=== PATIENT | male | born 1965 | race African-American/Black ===

== ENCOUNTER 2019-05-15 08:34 | Inpatient (IN) | payer OTHER ==
[2019-05-15] MEDS ORDERED: THIAMINE 100 MG/ML 2 ML VIAL IM STA (08:46)
[2019-05-15] MEDS ORDERED: LORazepam 2 MG/ML INJ IV PRN ×2 (08:46)
[2019-05-15] MEDS ORDERED: SODIUM CHLORIDE 0.9% 1,000 ML IV ONE (08:47)
[2019-05-15] MEDS ORDERED: ONDANSETRON 4 MG/2 ML VIAL IVP STA (09:12)
--- NOTE | 2019-05-15 09:23 | XR ---
EXAMINATION TYPE: XR KUB DATE OF EXAM: 05/15/2019 COMPARISON: 12/14/2009 HISTORY: Vomiting TECHNIQUE: One view abdominal series FINDINGS: The osseous structures are intact. The bowel gas pattern is nonspecific. Lung bases are clear. IMPRESSION: 1. Nonspecific abdomen.
--- NOTE | 2019-05-15 09:41 | ED ---
Nausea/Vomiting/Diarrhea HPI <Javier Mitchell - Last Filed: 05/15/19 14:32> - General Source: patient Mode of arrival: wheelchair Limitations: no limitations <Zulma Bermudez - Last Filed: 05/15/19 15:18> - General Chief complaint: Nausea/Vomiting/Diarrhea Stated complaint: Not eating, vomiting Time Seen by Provider: 05/15/19 08:45 - History of Present Illness Initial comments: 53-year-old male with history of diabetes presenting today for chief complaint of vomiting loss of appetite, chills. Patient states he is a HAS been trying to decrease his oral intake and attempt to be sober. Patient states that the past week he has had vomiting he states he had some mild shakes. Patient denies any hallucinations. Patient denies diarrhea or fevers. Patient denies that Mrs. melena hematochezia. Patient denies any abdominal pain chest pain or shortness of breath. Remaining review of system negative. Upon arrival patient appears in no distress blood pressure elevated patient did not take home blood pressure medications prior to arrival (Zulma Bermudez) - Related Data Home Medications Medication Instructions Recorded Confirmed Insulin Aspart [Novolog] See Protocol SQ TID PRN 05/15/19 05/15/19 Insulin Glargine,Hum.rec.anlog 30 unit SQ HS 05/15/19 05/15/19 [Basaglar Kwikpen U-100] Lisinopril [Prinivil] 10 mg PO DAILY 05/15/19 05/15/19 metFORMIN HCL [metFORMIN HCL ER] 750 mg PO BID 05/15/19 05/15/19 Allergies Allergy/AdvReac Type Severity Reaction Status Date / Time No Known Allergies Allergy Verified 05/15/19 09:25 Review of Systems ROS Other: All systems not noted in ROS Statement are negative. <Javier Mitchell - Last Filed: 05/15/19 14:32> ROS Other: All systems not noted in ROS Statement are negative. <Zulma Bermudez - Last Filed: 05/15/19 15:18> ROS Statement: Those systems with pertinent positive or pertinent negative responses have been documented in the HPI. Past Medical History Past Medical History: Diabetes Mellitus, Hypertension History of Any Multi-Drug Resistant Organisms: None Reported Past Surgical History: No Surgical Hx Reported Smoking Status: Light tobacco smoker Past Alcohol Use History: Abuse, Daily, Heavy Past Drug Use History: None Reported <Zulma Bermudez - Last Filed: 05/15/19 15:18> General Exam Limitations: no limitations <SaybruceZulma Zhao - Last Filed: 05/15/19 15:18> - General Exam Comments Initial Comments: General: The patient is awake and alert, in no distress Eye: +3 mm pupils are equal, round and reactive to light, extra-ocular movements are intact. No nystagmus. There is normal conjunctiva bilaterally. No signs of icterus. Ears, nose, mouth and throat: There are moist mucous membranes and no oral lesions. Neck: The neck is supple, there is no tenderness or JVD. Cardiovascular: There is a regular rate and rhythm. No murmur, rub or gallop is appreciated. Respiratory: Lungs are clear to auscultation, respirations are non-labored, breath sounds are equal. No wheezes, stridor, rales, or rhonchi. Gastrointestinal: Soft, non-distended, non-tender abdomen without masses or organomegaly noted. There is no rebound or guarding present. Musculoskeletal: Normal ROM, no tenderness. Strength 5/5. Sensation intact. Pulses equal bilaterally 2+. Neurological: A&O x 3. CN II-XII intact grossly, There are no obvious motor or sensory deficits. Coordination appears grossly intact. Speech is normal. Skin: Skin is warm and dry and no rashes or lesions are noted. Psychiatric: Cooperative (Zulma Bermudez) Course Vital Signs 05/15/19 05/15/19 08:38 13:42 Temperature 97.8 F Pulse Rate 106 H Respiratory 19 18 Rate Blood Pressure 150/104 174/99 O2 Sat by Pulse 98 Oximetry Medical Decision Making - Lab Data Result diagrams: 05/15/19 09:45 05/15/19 13:15 <Javier Mitchell - Last Filed: 05/15/19 14:32> - Lab Data Result diagrams: 05/15/19 09:45 05/15/19 13:15 <Zulma Bermudez - Last Filed: 05/15/19 15:18> - Medical Decision Making Case was discussed with practitioner Zohra. Patient does have an anion gap and ketosis of urine. Patient still has anion gap however somewhat improved after some fluids. Case was discussed with Dr. moreno, who will admit covering for hospital call for continued IV fluids. (Javier Mitchell) 53-year-old male presenting to ER today for chief complaint of vomiting, possible ETOH withdrawal. Patient appears to have mild withdrawal symptoms and has been given ativan in the ER. Patient states he hasnt had food in a week. Initial CMP revealed elevated anion gap, with glucose under 200mg, ketones in urine, postitive blood alcohol and acetone. ABG WNL. Patient had repeat CMP revealed continued elevation of the anion gap. Patient also has persistent hypokalemia (mild). Patient will be admitted for further evaluation and treatment. Patient agreeable. Vomiting controlled in the ER. (Zulma Bermudez) - Lab Data Lab Results 05/15/19 05/15/19 05/15/19 Range/Units 09:45 09:45 11:35 WBC 5.5 (3.8-10.6) k/uL RBC 4.72 (4.30-5.90) m/uL Hgb 14.1 (13.0-17.5) gm/dL Hct 39.8 (39.0-53.0) % MCV 84.2 (80.0-100.0) fL MCH 29.9 (25.0-35.0) pg MCHC 35.5 (31.0-37.0) g/dL RDW 12.0 (11.5-15.5) % Plt Count 352 (150-450) k/uL Neutrophils % 63 % Lymphocytes % 24 % Monocytes % 7 % Eosinophils % 1 % Basophils % 1 % Neutrophils # 3.5 (1.3-7.7) k/uL Lymphocytes # 1.3 (1.0-4.8) k/uL Monocytes # 0.4 (0-1.0) k/uL Eosinophils # 0.0 (0-0.7) k/uL Basophils # 0.1 (0-0.2) k/uL Sample Site rrad ABG pH 7.46 H (7.35-7.45) ABG pCO2 33 L (35-45) mmHg ABG pO2 91 (83-108) mmHg ABG HCO3 24 (21-25) mmol/L ABG Total CO2 25 H (19-24) mmol/L ABG O2 Saturation 97.0 (94-97) % ABG Base Excess -0.2 mmol/L Antonio Test Yes FiO2 21 % Sodium 135 L (137-145) mmol/L Potassium 3.3 L (3.5-5.1) mmol/L Chloride 85 L (98-107) mmol/L Carbon Dioxide 21 L (22-30) mmol/L Anion Gap 29 mmol/L BUN 15 (9-20) mg/dL Creatinine 0.78 (0.66-1.25) mg/dL Est GFR (CKD-EPI)AfAm >90 (>60 ml/min/1.73 sqM) Est GFR (CKD-EPI)NonAf >90 (>60 ml/min/1.73 sqM) Glucose 125 H (74-99) mg/dL Calcium 9.4 (8.4-10.2) mg/dL Magnesium 1.5 L (1.6-2.3) mg/dL Total Bilirubin 0.9 (0.2-1.3) mg/dL AST 69 H (17-59) U/L ALT 31 (4-49) U/L Alkaline Phosphatase 79 (38-126) U/L Total Protein 8.2 (6.3-8.2) g/dL Albumin 4.9 (3.5-5.0) g/dL Urine Color Urine Appearance (Clear) Urine pH (5.0-8.0) Ur Specific [place] (1.001-1.035) Urine Protein (Negative) Urine Glucose (UA) (Negative) Urine Ketones (Negative) Urine Blood (Negative) Urine Nitrite (Negative) Urine Bilirubin (Negative) Urine Urobilinogen (<2.0) mg/dL Ur Leukocyte Esterase (Negative) Urine RBC (0-5) /hpf Urine WBC (0-5) /hpf Ur Squamous Epith Cells (0-4) /hpf Hyaline Casts (0-2) /lpf Urine Mucus (None) /hpf Serum Alcohol 81 mg/dL Acetone, Qual Positive (Negative) 05/15/19 05/15/19 Range/Units 12:53 13:15 WBC (3.8-10.6) k/uL RBC (4.30-5.90) m/uL Hgb (13.0-17.5) gm/dL Hct (39.0-53.0) % MCV (80.0-100.0) fL MCH (25.0-35.0) pg MCHC (31.0-37.0) g/dL RDW (11.5-15.5) % Plt Count (150-450) k/uL Neutrophils % % Lymphocytes % % Monocytes % % Eosinophils % % Basophils % % Neutrophils # (1.3-7.7) k/uL Lymphocytes # (1.0-4.8) k/uL Monocytes # (0-1.0) k/uL Eosinophils # (0-0.7) k/uL Basophils # (0-0.2) k/uL Sample Site ABG pH (7.35-7.45) ABG pCO2 (35-45) mmHg ABG pO2 (83-108) mmHg ABG HCO3 (21-25) mmol/L ABG Total CO2 (19-24) mmol/L ABG O2 Saturation (94-97) % ABG Base Excess mmol/L Antonio Test FiO2 % Sodium 134 L (137-145) mmol/L Potassium 3.4 L (3.5-5.1) mmol/L Chloride 88 L (98-107) mmol/L Carbon Dioxide 22 (22-30) mmol/L Anion Gap 24 mmol/L BUN 14 (9-20) mg/dL Creatinine 0.75 (0.66-1.25) mg/dL Est GFR (CKD-EPI)AfAm >90 (>60 ml/min/1.73 sqM) Est GFR (CKD-EPI)NonAf >90 (>60 ml/min/1.73 sqM) Glucose 104 H (74-99) mg/dL Calcium 8.9 (8.4-10.2) mg/dL Magnesium (1.6-2.3) mg/dL Total Bilirubin 0.8 (0.2-1.3) mg/dL AST 60 H (17-59) U/L ALT 29 (4-49) U/L Alkaline Phosphatase 73 (38-126) U/L Total Protein 7.4 (6.3-8.2) g/dL Albumin 4.6 (3.5-5.0) g/dL Urine Color Yellow Urine Appearance Clear (Clear) Urine pH 5.5 (5.0-8.0) Ur Specific [place] 1.023 (1.001-1.035) Urine Protein 2+ H (Negative) Urine Glucose (UA) Negative (Negative) Urine Ketones 4+ H (Negative) Urine Blood Trace H (Negative) Urine Nitrite Negative (Negative) Urine Bilirubin Negative (Negative) Urine Urobilinogen <2.0 (<2.0) mg/dL Ur Leukocyte Esterase Negative (Negative) Urine RBC 1 (0-5) /hpf Urine WBC 1 (0-5) /hpf Ur Squamous Epith Cells <1 (0-4) /hpf Hyaline Casts 1 (0-2) /lpf Urine Mucus Rare H (None) /hpf Serum Alcohol mg/dL Acetone, Qual (Negative) - EKG Data EKG Comments: Ventricular rate 92 bpm, OR interval 138 ms, to administration 94 ms QT/QTC 438/541 ms. This is normal sinus elevation or depression noted. There is noted T-wave inversions QT is prolonged otherwise no acute findings (Zulma Bermudez) Disposition <Javier Mitchell - Last Filed: 05/15/19 14:32> Is patient prescribed a controlled substance at d/c from ED?: No Time of Disposition: 14:51 Decision to Admit Reason: Admit from EC Decision Date: 05/15/19 Decision Time: 14:51 <Zulma Bermudez - Last Filed: 05/15/19 15:18> Clinical Impression: Vomiting, High anion gap metabolic acidosis, Hypokalemia, QT prolongation Disposition: ADMITTED IP TO THIS [facility] Condition: Stable Referrals: None,Stated [Primary Care Provider] - 1-2 days
[2019-05-15 10:32] LABS: Basophils # (A) 0.1 k/uL (0-0.2); Basophils % (A) 1 %; Eosinophils % (A) 1 %; HCT 39.8 % (39.0-53.0); HGB 14.1 gm/dL (13.0-17.5); Lymphocytes # (A) 1.3 k/uL (1.0-4.8); Lymphocytes % (A) 24 %; MCH 29.9 pg (25.0-35.0); MCHC 35.5 g/dL (31.0-37.0); MCV 84.2 fL (80.0-100.0); Mean Platelet Volume 7.1; Monocytes # (A) 0.4 k/uL (0-1.0); Monocytes % (A) 7 %; Neutrophils # (A) 3.5 k/uL (1.3-7.7); Neutrophils % (A) 63 %; Platelet Count 352 k/uL (150-450); RBC 4.72 m/uL (4.30-5.90); WBC 5.5 k/uL (3.8-10.6)
[2019-05-15 10:38] LABS: ALT 31 U/L (4-49); AST 69 U/L (17-59); African American GFR (CKD) >90 (>60 ml/min/1.73 sqM); Albumin 4.9 g/dL (3.5-5.0); Alkaline Phosphatase 79 U/L (38-126); Anion Gap 29 mmol/L; Blood Urea Nitrogen 15 mg/dL (9-20); Calcium 9.4 mg/dL (8.4-10.2); Carbon Dioxide 21 mmol/L (22-30); Chloride 85 mmol/L (98-107); Glucose 125 mg/dL (74-99); Magnesium 1.5 mg/dL (1.6-2.3); Non-African American GFR(CKD) >90 (>60 ml/min/1.73 sqM); Potassium 3.3 mmol/L (3.5-5.1); Sodium 135 mmol/L (137-145); Total Bilirubin 0.9 mg/dL (0.2-1.3); Total Protein 8.2 g/dL (6.3-8.2)
[2019-05-15 10:49] LABS: Alcohol 81 mg/dL
[2019-05-15] MEDS ORDERED: MAGNESIUM OXIDE 400 MG TAB PO STA (10:54)
[2019-05-15] MEDS ORDERED: INSULIN REGULAR BOLUS (FROM DRIP BAG) IV ONE ×2 (10:55→17:22)
[2019-05-15] MEDS ORDERED: POTASSIUM CHLORIDE ER 20 MEQ TAB.ER PO STA (10:56)
[2019-05-15] MEDS ORDERED: SODIUM CHLORIDE 0.9% 1,000 ML IV SCH ×2 (11:00→17:30)
[2019-05-15] MEDS ORDERED: INSULIN REGULAR 100 UNIT in SODIUM CHLORIDE 0.9% 100 ML IV SCH ×2 (11:30→17:30)
[2019-05-15 11:49] LABS: ABG Base Excess -0.2 mmol/L; ABG HCO3 24 mmol/L (21-25); ABG PCO2 33 mmHg (35-45); ABG PH 7.46 (7.35-7.45); ABG PO2 91 mmHg (83-108); ABG TCO2 25 mmol/L (19-24); Allen Test Performed? Yes
[2019-05-15] MEDS ORDERED: D5-0.45% NACL WITH KCL 20MEQ/L 1,000 ML IV SCH (12:00)
[2019-05-15] MEDS: POTASSIUM CHLORIDE 10 MEQ in WATER FOR INJECTION 1 100ML.BAG IVPB SCH ×2 (12:43→13:56)
[2019-05-15 13:29] LABS: Appearance,Urine Clear (Clear); Bilirubin,Urine Negative (Negative); Blood,Urine Trace (Negative); Color,Urine Yellow; Glucose,Urine (UA) Negative (Negative); Hyaline Casts,Urine 1 /lpf (0-2); Ketones,Urine 4+ (Negative); Leukocyte Esterase,Urine Negative (Negative); Mucus,Urine Rare /hpf; Nitrite,Urine Negative (Negative); PH, Urine 5.5 (5.0-8.0); Protein,Urine 2+ (Negative); RBC,Urine 1 /hpf (0-5); Specific Gravity,Urine 1.023 (1.001-1.035); Squamous Epithelial Cell,Urine <1 /hpf (0-4); Urobilinogen,Urine <2.0 mg/dL (<2.0); WBC,Urine 1 /hpf (0-5)
[2019-05-15 13:35] LABS: ALT 29 U/L (4-49); AST 60 U/L (17-59); African American GFR (CKD) >90 (>60 ml/min/1.73 sqM); Albumin 4.6 g/dL (3.5-5.0); Alkaline Phosphatase 73 U/L (38-126); Anion Gap 24 mmol/L; Blood Urea Nitrogen 14 mg/dL (9-20); Calcium 8.9 mg/dL (8.4-10.2); Carbon Dioxide 22 mmol/L (22-30); Chloride 88 mmol/L (98-107); Glucose 104 mg/dL (74-99); Non-African American GFR(CKD) >90 (>60 ml/min/1.73 sqM); Potassium 3.4 mmol/L (3.5-5.1); Sodium 134 mmol/L (137-145); Total Bilirubin 0.8 mg/dL (0.2-1.3); Total Protein 7.4 g/dL (6.3-8.2)
[2019-05-15] MEDS: LORazepam 2 MG/ML INJ IV PRN ×3 (13:55→20:12)
[2019-05-15] MEDS ORDERED: LISINOPRIL 10 MG TAB PO STA (14:31)
[2019-05-15] MEDS ORDERED: NALOXONE 0.4 MG/ML 1 ML VIAL IV PRN (14:49)
[2019-05-15] MEDS: SODIUM CHLORIDE 0.9% 1,000 ML IV SCH (15:45)
[2019-05-15] MEDS: LISINOPRIL 10 MG TAB PO SCH (15:46)
[2019-05-15] MEDS ORDERED: Magnesium Replacement Protocol 1 EACH MISC MISCELLANE PRN (17:22)
[2019-05-15] MEDS ORDERED: Potassium Replacement Protocol 1 EACH MISC MISCELLANE PRN ×2 (17:22→17:49)
[2019-05-15 17:29] LABS: Glucose,Whole Blood 216 mg/dL (75-99)
[2019-05-15] MEDS: THIAMINE 100 MG TAB PO SCH (17:55)
[2019-05-15] MEDS: POTASSIUM CHLORIDE ER 20 MEQ TAB.ER PO SCH ×2 (17:55→23:14)
[2019-05-15] MEDS: INSULIN ASPART (NovoLOG) 100 UNIT/ML VIAL SQ SCH ×2 (18:00→23:14)
[2019-05-15 21:08] LABS: Glucose,Whole Blood 141 mg/dL (75-99)
[2019-05-15] MEDS: metFORMIN 500 MG TAB PO SCH (23:14)
[2019-05-15] MEDS: INSULIN DETEMIR (LEVEMIR) 100 UNIT/ML SYR SQ SCH (23:14)
[2019-05-16 00:39] LABS: Appearance,Urine Clear (Clear); Bilirubin,Urine Negative (Negative); Blood,Urine Negative (Negative); Color,Urine Yellow; Glucose,Urine (UA) 2+ (Negative); Leukocyte Esterase,Urine Negative (Negative); Nitrite,Urine Negative (Negative); Protein,Urine Trace (Negative); Specific Gravity,Urine 1.017 (1.001-1.035); Urobilinogen,Urine >12.0 mg/dL (<2.0)
[2019-05-16 00:47] LABS: Ketones,Urine 2+ (Negative)
[2019-05-16] MEDS: 1: MVI, ADULT NO.4 WITH VIT K 10 ML, THIAMINE 100 MG, FOLIC ACID 1 MG in SODIUM CHLORIDE IV SCH ×12 (00:52→16:14)
[2019-05-16] MEDS: LORazepam 2 MG/ML INJ IV PRN ×4 (01:16→13:12)
[2019-05-16 04:27] LABS: Basophils # (A) 0.1 k/uL (0-0.2); Basophils % (A) 2 %; Eosinophils # (A) 0.2 k/uL (0-0.7); Eosinophils % (A) 2 %; HCT 37.6 % (39.0-53.0); Lymphocytes # (A) 1.3 k/uL (1.0-4.8); Lymphocytes % (A) 19 %; MCH 29.8 pg (25.0-35.0); MCHC 34.5 g/dL (31.0-37.0); MCV 86.2 fL (80.0-100.0); Mean Platelet Volume 7.5; Monocytes # (A) 0.4 k/uL (0-1.0); Monocytes % (A) 6 %; Neutrophils # (A) 4.7 k/uL (1.3-7.7); Neutrophils % (A) 68 %; Platelet Count 332 k/uL (150-450); RBC 4.36 m/uL (4.30-5.90); RDW 12.1 % (11.5-15.5); WBC 6.9 k/uL (3.8-10.6)
[2019-05-16 04:38] LABS: African American GFR (CKD) >90 (>60 ml/min/1.73 sqM); Anion Gap 11 mmol/L; Blood Urea Nitrogen 16 mg/dL (9-20); Calcium 9.5 mg/dL (8.4-10.2); Carbon Dioxide 26 mmol/L (22-30); Chloride 97 mmol/L (98-107); Glucose 213 mg/dL (74-99); Non-African American GFR(CKD) >90 (>60 ml/min/1.73 sqM); Potassium 3.9 mmol/L (3.5-5.1); Sodium 134 mmol/L (137-145)
[2019-05-16] MEDS: SODIUM CHLORIDE 0.9% 1,000 ML IV SCH ×2 (05:07→17:53)
[2019-05-16 07:31] LABS: Glucose,Whole Blood 152 mg/dL (75-99)
[2019-05-16] MEDS: metFORMIN 500 MG TAB PO SCH ×2 (08:39→21:32)
[2019-05-16] MEDS: THIAMINE 100 MG TAB PO SCH ×2 (08:40→16:18)
[2019-05-16] MEDS: LISINOPRIL 10 MG TAB PO SCH (08:40)
[2019-05-16] MEDS: INSULIN ASPART (NovoLOG) 100 UNIT/ML VIAL SQ SCH ×4 (08:47→21:31)
[2019-05-16 12:30] LABS: Glucose,Whole Blood 83 mg/dL (75-99)
[2019-05-16 12:43] VITALS: BMI 24.3
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
[2019-05-16 17:33] LABS: Glucose,Whole Blood 154 mg/dL (75-99)
[2019-05-16 20:23] LABS: Glucose,Whole Blood 123 mg/dL (75-99)
[2019-05-16] MEDS: INSULIN DETEMIR (LEVEMIR) 100 UNIT/ML SYR SQ SCH (21:32)
[2019-05-17] MEDS: 1: MVI, ADULT NO.4 WITH VIT K 10 ML, THIAMINE 100 MG, FOLIC ACID 1 MG in SODIUM CHLORIDE IV SCH ×12 (04:15→20:35)
[2019-05-17] MEDS: LORazepam 2 MG/ML INJ IV PRN ×4 (04:23→20:34)
[2019-05-17 07:20] LABS: Glucose,Whole Blood 83 mg/dL (75-99)
[2019-05-17] MEDS: INSULIN ASPART (NovoLOG) 100 UNIT/ML VIAL SQ SCH ×4 (08:15→20:49)
[2019-05-17] MEDS: LISINOPRIL 10 MG TAB PO SCH (08:53)
[2019-05-17] MEDS: THIAMINE 100 MG TAB PO SCH ×2 (08:53→17:44)
[2019-05-17] MEDS: SODIUM CHLORIDE 0.9% 1,000 ML IV SCH ×2 (08:53→20:34)
[2019-05-17] MEDS: metFORMIN 500 MG TAB PO SCH ×2 (08:53→20:49)
[2019-05-17 09:02] LABS: Basophils # (A) 0.1 k/uL (0-0.2); Basophils % (A) 1 %; Eosinophils # (A) 0.1 k/uL (0-0.7); Eosinophils % (A) 1 %; HCT 39.3 % (39.0-53.0); HGB 13.2 gm/dL (13.0-17.5); Lymphocytes # (A) 1.9 k/uL (1.0-4.8); Lymphocytes % (A) 25 %; MCH 29.4 pg (25.0-35.0); MCHC 33.4 g/dL (31.0-37.0); MCV 87.8 fL (80.0-100.0); Mean Platelet Volume 7.2; Monocytes # (A) 0.5 k/uL (0-1.0); Monocytes % (A) 6 %; Neutrophils # (A) 4.8 k/uL (1.3-7.7); Neutrophils % (A) 64 %; Platelet Count 343 k/uL (150-450); RBC 4.48 m/uL (4.30-5.90); RDW 12.1 % (11.5-15.5); WBC 7.5 k/uL (3.8-10.6)
[2019-05-17 09:19] LABS: African American GFR (CKD) >90 (>60 ml/min/1.73 sqM); Anion Gap 11 mmol/L; Blood Urea Nitrogen 9 mg/dL (9-20); Calcium 9.8 mg/dL (8.4-10.2); Carbon Dioxide 26 mmol/L (22-30); Chloride 101 mmol/L (98-107); Glucose 113 mg/dL (74-99); Non-African American GFR(CKD) >90 (>60 ml/min/1.73 sqM); Potassium 4.3 mmol/L (3.5-5.1); Sodium 138 mmol/L (137-145)
[2019-05-17 11:36] LABS: Glucose,Whole Blood 133 mg/dL (75-99)
[2019-05-17] MEDS ORDERED: HYDROmorphone 0.5 MG/0.5 ML SYRINGE IVP PRN (15:13)
[2019-05-17] MEDS: cloNIDine HCL 0.1 MG TAB PO SCH ×2 (15:28→20:49)
[2019-05-17 17:22] LABS: Glucose,Whole Blood 190 mg/dL (75-99)
--- NOTE | 2019-05-17 18:08 | P.PN ---
Subjective Progress Note Date: 05/16/19 Principal diagnosis: EtOH intoxication/withdrawal Hyperglycemia/ diabetes mellitus type 1 High anion gap Metabolic acidosis Electrolyte imbalance 53-year-old male patient presented to ED with complaint of nausea, vomiting and diarrhea; workup in ED revealed patient to be in alcohol intoxication with blood alcohol level of 81 with mild elevation in blood glucose levels and positive acetone; patient is started on IV fluid hydration and CIWA protocol for alcohol withdrawal and is admitted for further treatment 05/16/2019 Patient is seen and evaluated in room at bedside; continues to complain of feeling shaky and abdominal pain Vital signs show temperature of 97.9, pulse 96, respirations 16 and blood pressure 167/100 Laboratory review shows a CBC if white blood count is 6.9, hemoglobin stable; sodium of 134, potassium 3.8 blood glucoses ranging from 123-213; magnesium is low at 1.5 We will continue with current management and supplement electrolytes; patient restarted on IV hydralazine when necessary for systolic blood pressure greater than 160; continue with IV fluid hydration with banana bag and CIWA protocol for EtOH withdrawal Objective - Vital Signs Vital signs: Vital Signs Temp 98.0 F 05/16/19 06:20 Pulse 85 05/16/19 06:20 Resp 16 05/16/19 06:20 BP 132/87 05/16/19 06:20 Pulse Ox 99 05/16/19 06:20 Intake & Output 05/15/19 05/16/19 05/16/19 18:59 06:59 18:59 Intake Total 1400 Balance 1400 Weight 72.575 kg 72.575 kg Intake: Intake, IV Titration 1400 Amount Mvi, Adult No.4 with Vit 500 K 10 ml Thiamine 100 mg Folic Acid 1 mg In Sodium Chloride 0.9% 1,000 ml @ 100 mls/hr IV .BY DURATION BREONNA Rx#: [id number] Potassium Chloride 10 meq 100 In Water For Injection 1 100ml.bag @ 100 mls/hr IVPB Q1H BREONNA Rx#: [id number] Sodium Chloride 0.9% 1, 800 000 ml @ 100 mls/hr IV . BY DURATION BREONNA Rx#: [id number] Other: # Voids 200 - Exam GENERAL: The patient is alert and oriented x3, not in any acute distress. Well developed, well nourished. HEENT: Pupils are round and equally reacting to light. EOMI. No scleral icterus. No conjunctival pallor. Normocephalic, atraumatic. No pharyngeal erythema. No thyromegaly. CARDIOVASCULAR: S1 and S2 present. No murmurs, rubs, or gallops. PULMONARY: Chest is clear to auscultation, no wheezing or crackles. ABDOMEN: Soft, nontender, nondistended, normoactive bowel sounds. No palpable organomegaly. MUSCULOSKELETAL: No joint swelling or deformity. EXTREMITIES: No cyanosis, clubbing, or pedal edema. NEUROLOGICAL: Gross neurological examination did not reveal any focal deficits. SKIN: No rashes. - Labs CBC & Chem 7: 05/17/19 08:26 05/17/19 08:26 Labs: Abnormal Lab Results - Last 24 Hours (Table) 05/15/19 05/15/19 05/16/19 Range/Units 17:17 20:51 00:20 Hct (39.0-53.0) % Sodium (137-145) mmol/L Chloride (98-107) mmol/L Glucose (74-99) mg/dL POC Glucose (mg/dL) 216 H 141 H (75-99) mg/dL Magnesium (1.6-2.3) mg/dL Urine Protein Trace H (Negative) Urine Glucose (UA) 2+ H (Negative) Urine Ketones 2+ H (Negative) 05/16/19 05/16/19 05/16/19 Range/Units 04:13 04:13 07:24 Hct 37.6 L (39.0-53.0) % Sodium 134 L (137-145) mmol/L Chloride 97 L (98-107) mmol/L Glucose 213 H (74-99) mg/dL POC Glucose (mg/dL) 152 H (75-99) mg/dL Magnesium (1.6-2.3) mg/dL Urine Protein (Negative) Urine Glucose (UA) (Negative) Urine Ketones (Negative) 05/16/19 Range/Units 07:41 Hct (39.0-53.0) % Sodium (137-145) mmol/L Chloride (98-107) mmol/L Glucose (74-99) mg/dL POC Glucose (mg/dL) (75-99) mg/dL Magnesium 1.5 L (1.6-2.3) mg/dL Urine Protein (Negative) Urine Glucose (UA) (Negative) Urine Ketones (Negative) Assessment and Plan Assessment: 1. EtOH intoxication/withdrawal; patient was be admitted; start patient on IV fluid hydration with banana bag; WA protocol in place; we will add Librium if patient goes through withdrawals; consult social work for EtOH resources at time of discharge 2. Hyperglycemia/ diabetes mellitus type 1; we will continue with home dose of Lantus 30 units daily at bedtime and Accu-Cheks every before meals and at bedtime with insulin sliding scale; continue metformin 500 mg twice a day 3. High anion gap Metabolic acidosis; possibly secondary to EtOH intoxication; we will start on IV fluid hydration with banana bag; monitor metabolic panel closely and start patient on bicarb if remains acidotic 4. Electrolyte imbalance; hypokalemia/hypomagnesemia; electrolytes supplemented in ED; we will continue to monitor electrolytes closely and supplement acc ordingly 5. Nausea/abdominal pain; possibly secondary to 1; symptomatic treatment with Zofran 4 mg IV every 6 hours when necessary 6. Transaminitis; possibly EtOH induced liver disease; trend liver enzymes and possible ultrasound/hepatitis profile if liver enzymes continue to trend up 7. Uncontrolled hypertension; restart patient on home dose of lisinopril 10 mg daily; monitor blood pressure closely and adjust antihypertensive therapy if blood pressure remains elevated 8. DVT prophylaxis; SCDs CODE STATUS; full code
[2019-05-17] MEDS ORDERED: hydrALAZINE HCL 20 MG/ML 1 ML VIAL IVP PRN (18:17)
[2019-05-17 20:49] LABS: Glucose,Whole Blood 141 mg/dL (75-99)
[2019-05-17] MEDS: INSULIN DETEMIR (LEVEMIR) 100 UNIT/ML SYR SQ SCH (20:49)
[2019-05-17] MEDS: MAGNESIUM SULFATE-D5W PMX 1 GM in DEXTROSE/WATER 1 100ML.BAG IVPB SCH ×3 (20:57→23:15)
[2019-05-17] MEDS: ONDANSETRON 4 MG/2 ML VIAL IVP PRN (23:16)
[2019-05-18] MEDS: LORazepam 2 MG/ML INJ IV PRN (02:45)
[2019-05-18 06:54] LABS: Glucose,Whole Blood 118 mg/dL (75-99)
[2019-05-18] MEDS: INSULIN ASPART (NovoLOG) 100 UNIT/ML VIAL SQ SCH ×4 (07:07→22:14)
[2019-05-18] MEDS: metFORMIN 500 MG TAB PO SCH ×2 (08:48→22:12)
[2019-05-18] MEDS: THIAMINE 100 MG TAB PO SCH ×2 (08:49→17:48)
[2019-05-18] MEDS: cloNIDine HCL 0.1 MG TAB PO SCH ×2 (08:49→22:17)
[2019-05-18] MEDS: LISINOPRIL 10 MG TAB PO SCH ×2 (08:50→22:18)
[2019-05-18] MEDS: SODIUM CHLORIDE 0.9% 1,000 ML IV SCH (08:50)
[2019-05-18] MEDS: 1: MVI, ADULT NO.4 WITH VIT K 10 ML, THIAMINE 100 MG, FOLIC ACID 1 MG in SODIUM CHLORIDE IV SCH ×8 (08:50→18:17)
[2019-05-18] MEDS: PANTOPRAZOLE 40 MG TABLET PO SCH ×2 (08:50→17:48)
[2019-05-18 10:01] LABS: Basophils # (A) 0.1 k/uL (0-0.2); Basophils % (A) 1 %; Eosinophils # (A) 0.1 k/uL (0-0.7); Eosinophils % (A) 2 %; HCT 36.7 % (39.0-53.0); HGB 12.7 gm/dL (13.0-17.5); Lymphocytes # (A) 1.6 k/uL (1.0-4.8); Lymphocytes % (A) 22 %; MCH 30.3 pg (25.0-35.0); MCHC 34.5 g/dL (31.0-37.0); MCV 87.8 fL (80.0-100.0); Mean Platelet Volume 7.3; Monocytes # (A) 0.5 k/uL (0-1.0); Monocytes % (A) 6 %; Neutrophils # (A) 4.9 k/uL (1.3-7.7); Neutrophils % (A) 67 %; Platelet Count 335 k/uL (150-450); RBC 4.18 m/uL (4.30-5.90); RDW 12.2 % (11.5-15.5); WBC 7.4 k/uL (3.8-10.6)
[2019-05-18 10:10] LABS: African American GFR (CKD) >90 (>60 ml/min/1.73 sqM); Anion Gap 9 mmol/L; Blood Urea Nitrogen 12 mg/dL (9-20); Calcium 9.9 mg/dL (8.4-10.2); Carbon Dioxide 29 mmol/L (22-30); Chloride 100 mmol/L (98-107); Glucose 210 mg/dL (74-99); Magnesium 1.6 mg/dL (1.6-2.3); Non-African American GFR(CKD) >90 (>60 ml/min/1.73 sqM); Potassium 4.8 mmol/L (3.5-5.1); Sodium 138 mmol/L (137-145)
[2019-05-18 11:23] LABS: Glucose,Whole Blood 238 mg/dL (75-99)
[2019-05-18] MEDS: ONDANSETRON 4 MG/2 ML VIAL IVP PRN (12:43)
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
[2019-05-18 13:39] LABS: Cholesterol 126 mg/dL (<200); HDL Cholesterol 62 mg/dL (40-60); LDL Cholesterol,Calculated 52 mg/dL (0-99); Triglycerides 59 mg/dL (<150)
[2019-05-18 16:57] LABS: Glucose,Whole Blood 158 mg/dL (75-99)
[2019-05-18 21:16] LABS: Glucose,Whole Blood 204 mg/dL (75-99)
[2019-05-18] MEDS: INSULIN DETEMIR (LEVEMIR) 100 UNIT/ML SYR SQ SCH (22:14)
[2019-05-19] MEDS: SODIUM CHLORIDE 0.9% 1,000 ML IV SCH ×2 (01:26→13:00)
[2019-05-19] MEDS: 1: MVI, ADULT NO.4 WITH VIT K 10 ML, THIAMINE 100 MG, FOLIC ACID 1 MG in SODIUM CHLORIDE IV SCH ×12 (02:50→23:22)
[2019-05-19 07:05] LABS: Glucose,Whole Blood 109 mg/dL (75-99)
--- NOTE | 2019-05-19 09:11 | P.PN ---
Subjective Progress Note Date: 05/18/19 Principal diagnosis: EtOH intoxication/withdrawal Hyperglycemia/ diabetes mellitus type 1 High anion gap Metabolic acidosis Electrolyte imbalance 53-year-old male patient presented to ED with complaint of nausea, vomiting and diarrhea; workup in ED revealed patient to be in alcohol intoxication with blood alcohol level of 81 with mild elevation in blood glucose levels and positive acetone; patient is started on IV fluid hydration and CIWA protocol for alcohol withdrawal and is admitted for further treatment 05/17/2019 Patient is seen and evaluated in room at bedside; continues to complain of feeling shaky and abdominal pain Vital signs show temperature of 97.9, pulse 96, respirations 16 and blood pressure 167/100 Laboratory review shows a CBC if white blood count is 6.9, hemoglobin stable; sodium of 134, potassium 3.8 blood glucoses ranging from 123-213; magnesium is low at 1.5 We will continue with current management and supplement electrolytes; patient restarted on IV hydralazine when necessary for systolic blood pressure greater than 160; continue with IV fluid hydration with banana bag and CIWA protocol for EtOH withdrawal 05/18/2019 Patient is seen and evaluated; has been complaining of intermittent chest pain and persistent abdominal pain; patient was evaluated by cardiology Vital signs with a temperature of 98.1, pulse 75, respiration 14 and blood pressure is 154/97 which is improved from 167/100 yesterday Labs are consistent off a stable CBC; sodium level of 138, potassium 4.8, BUN/creatinine of 12/0.8; blood glucose remains elevated at 238 We will continue with IV fluids and CIWA protocol for high anion gap metabolic acidosis and electrolyte imbalance; cardiology is recommending to increase lisinopril to 10 mg twice a day for uncontrolled hypertension; patient will have a 2-D echocardiogram done for left ventricular function; lipid panel is ordered we will consult GI for abdominal pain Anticipate discharge in next 24-48 hours Objective - Vital Signs Vital signs: Vital Signs Temp 98.1 F 05/18/19 12:37 Pulse 75 05/18/19 12:37 Resp 14 05/18/19 12:37 BP 154/97 05/18/19 12:37 Pulse Ox 100 05/18/19 12:37 Intake & Output 05/17/19 05/18/19 05/18/19 18:59 06:59 18:59 Intake Total 1080 400 Output Total 850 Balance 230 400 Intake: Oral 1080 400 Output: Urine 850 Other: # Voids 2 2 # Emeses 1 - Exam GENERAL: The patient is alert and oriented x3, not in any acute distress. Well developed, well nourished. HEENT: Pupils are round and equally reacting to light. EOMI. No scleral icterus. No conjunctival pallor. Normocephalic, atraumatic. No pharyngeal erythema. No thyromegaly. CARDIOVASCULAR: S1 and S2 present. No murmurs, rubs, or gallops. PULMONARY: Chest is clear to auscultation, no wheezing or crackles. ABDOMEN: Soft, nontender, nondistended, normoactive bowel sounds. No palpable organomegaly. MUSCULOSKELETAL: No joint swelling or deformity. EXTREMITIES: No cyanosis, clubbing, or pedal edema. NEUROLOGICAL: Gross neurological examination did not reveal any focal deficits. SKIN: No rashes. - Labs CBC & Chem 7: 05/18/19 08:58 05/18/19 08:58 Labs: Abnormal Lab Results - Last 24 Hours (Table) 05/17/19 05/17/19 05/17/19 Range/Units 17:20 19:14 20:42 RBC (4.30-5.90) m/uL Hgb (13.0-17.5) gm/dL Hct (39.0-53.0) % Glucose (74-99) mg/dL POC Glucose (mg/dL) 190 H 141 H (75-99) mg/dL Magnesium 1.1 L (1.6-2.3) mg/dL HDL Cholesterol (40-60) mg/dL 05/18/19 05/18/19 05/18/19 Range/Units 06:51 08:58 08:58 RBC 4.18 L (4.30-5.90) m/uL Hgb 12.7 L (13.0-17.5) gm/dL Hct 36.7 L (39.0-53.0) % Glucose 210 H (74-99) mg/dL POC Glucose (mg/dL) 118 H (75-99) mg/dL Magnesium (1.6-2.3) mg/dL HDL Cholesterol (40-60) mg/dL 05/18/19 05/18/19 Range/Units 08:58 11:21 RBC (4.30-5.90) m/uL Hgb (13.0-17.5) gm/dL Hct (39.0-53.0) % Glucose (74-99) mg/dL POC Glucose (mg/dL) 238 H (75-99) mg/dL Magnesium (1.6-2.3) mg/dL HDL Cholesterol 62 H (40-60) mg/dL Assessment and Plan Assessment: 1. EtOH intoxication/withdrawal; patient was be admitted; start patient on IV fluid hydration with banana bag; [facility] protocol in place; we will add Librium if patient goes through withdrawals; consult social work for EtOH resources at time of discharge 2. Hyperglycemia/ diabetes mellitus type 1; we will continue with home dose of Lantus 30 units daily at bedtime and Accu-Cheks every before meals and at bedtime with insulin sliding scale; continue metformin 500 mg twice a day 3. High anion gap Metabolic acidosis; possibly secondary to EtOH intoxication; we will start on IV fluid hydration with banana bag; monitor metabolic panel closely and start patient on bicarb if remains acidotic 4. Electrolyte imbalance; hypokalemia/hypomagnesemia; electrolytes supplemented in ED; we will continue to monitor electrolytes closely and supplement ac cordingly 5. Nausea/abdominal pain; possibly secondary to 1; symptomatic treatment with Zofran 4 mg IV every 6 hours when necessary 6. Transaminitis; possibly EtOH induced liver disease; trend liver enzymes and possible ultrasound/hepatitis profile if liver enzymes continue to trend up 7. Uncontrolled hypertension; restart patient on home dose of lisinopril 10 mg daily; monitor blood pressure closely and adjust antihypertensive therapy if blood pressure remains elevated 8. DVT prophylaxis; SCDs CODE STATUS; full code Time with Patient: Greater than 30
[2019-05-19] MEDS: metFORMIN 500 MG TAB PO SCH ×2 (10:11→21:57)
[2019-05-19] MEDS: cloNIDine HCL 0.1 MG TAB PO SCH ×2 (10:11→21:57)
[2019-05-19] MEDS: INSULIN ASPART (NovoLOG) 100 UNIT/ML VIAL SQ SCH ×4 (10:11→21:15)
[2019-05-19] MEDS: PANTOPRAZOLE 40 MG TABLET PO SCH ×2 (10:11→17:46)
[2019-05-19] MEDS: THIAMINE 100 MG TAB PO SCH ×2 (10:11→17:46)
[2019-05-19] MEDS: LISINOPRIL 10 MG TAB PO SCH ×2 (10:11→21:57)
[2019-05-19 11:46] LABS: Glucose,Whole Blood 242 mg/dL (75-99)
--- NOTE | 2019-05-19 11:53 | P.PN ---
Subjective Progress Note Date: 05/19/19 This is a pleasant 53-year-old gentleman with past medical history significant for diabetes, hypertension and alcoholism as well as a past history of pancreatitis. Presented to the hospital with complaints of nausea, vomiting and epigastric pain. Patient apparently hadn't been eating well and had not been taking any of his medications over the last 2 weeks. Previously abstained from alcohol but resumed a month or 2 ago after being off work and becoming somewhat depressed. Admits to drinking about a fifth of liquor daily. Blood pressure was elevated upon admission an EKG showed sinus rhythm with no acute ST or T- wave abnormalities. Labs showed elevated glucose, elevated serum alcohol and hypokalemia. He was admitted for treatment of alcohol withdrawal and electrolyte abnormalities. We were asked to see the patient due to complaints of chest pain. Patient's pain is actually more of a discomfort in the epigastric area that seems to be worse after eating as well as worse with vomiting. The pain is also worsened with palpation. Upon examination, patient is resting comfortably in bed. Continues to complain of epigastric discomfort. No complaints of chest discomfort, shortness of breath, dizziness, lightheadedness, edema or syncope. No labs available from today. Currently on clonidine 0.1 mg by mouth twice a day, lisinopril 10 mg by mouth twice a day and Ativan per CIWA protocol. Blood pressure is better controlled. Objective - Vital Signs Vital signs: Vital Signs Temp 98.1 F 05/19/19 04:35 Pulse 73 05/19/19 04:35 Resp 18 05/19/19 04:35 BP 136/95 05/19/19 04:35 Pulse Ox 100 05/19/19 04:35 Intake & Output 05/18/19 05/19/19 05/19/19 18:59 06:59 18:59 Intake Total 540 300 Balance 540 300 Intake: Oral 540 300 Other: # Voids 3 100 - Exam PHYSICAL EXAMINATION: HEENT: Head is atraumatic, normocephalic. Pupils equal, round. Neck is supple. There is no elevated jugular venous pressure. HEART EXAMINATION: Heart sounds regular, S1 and S2 normal. No murmur or gallop heard. CHEST EXAMINATION: Lungs are clear to auscultation and precussion. No chest wall tenderness is noted on palpation or with deep breathing. ABDOMEN: Soft, epigastric and right upper quadrant tenderness to palpation. Bowel sounds are heard. No organomegaly noted. EXTREMITIES: 2+ peripheral pulses with no evidence of peripheral edema and no calf tenderness noted. NEUROLOGIC patient is awake, alert and oriented x3. . - Labs CBC & Chem 7: 05/18/19 08:58 05/18/19 08:58 Labs: Abnormal Lab Results - Last 24 Hours (Table) 05/18/19 05/18/19 05/18/19 Range/Units 08:58 16:54 21:01 POC Glucose (mg/dL) 158 H 204 H (75-99) mg/dL HDL Cholesterol 62 H (40-60) mg/dL 05/19/19 Range/Units 07:02 POC Glucose (mg/dL) 109 H (75-99) mg/dL HDL Cholesterol (40-60) mg/dL Assessment and Plan Assessment: #1 Atypical chest pain, appears to be more in the epigastric region, tenderness to palpation, troponins negative #2 alcohol withdrawal #3 hypertension #4 diabetes Plan: From cardiology's perspective, discomfort appears to be more GI in nature. We will review 2-D echo with Doppler once completed. Continue current medications. We will follow the patient on an as-needed basis. Please do not hesitate to contact us with questions. [employer] note has been reviewed, I agree with a documented findings and plan of care. Patient was seen and examined.
[2019-05-19 12:25] LABS: ALT 33 U/L (4-49); AST 47 U/L (17-59); African American GFR (CKD) >90 (>60 ml/min/1.73 sqM); Albumin 3.8 g/dL (3.5-5.0); Alkaline Phosphatase 59 U/L (38-126); Amylase 123 U/L (30-110); Anion Gap 10 mmol/L; Blood Urea Nitrogen 16 mg/dL (9-20); Calcium 9.7 mg/dL (8.4-10.2); Carbon Dioxide 22 mmol/L (22-30); Chloride 103 mmol/L (98-107); Glucose 212 mg/dL (74-99); Non-African American GFR(CKD) >90 (>60 ml/min/1.73 sqM); Potassium 4.8 mmol/L (3.5-5.1); Sodium 135 mmol/L (137-145); Total Bilirubin 0.3 mg/dL (0.2-1.3); Total Protein 6.4 g/dL (6.3-8.2)
[2019-05-19 12:29] LABS: HCT 35.7 % (39.0-53.0); HGB 11.8 gm/dL (13.0-17.5); MCH 29.9 pg (25.0-35.0); MCHC 33.1 g/dL (31.0-37.0); MCV 90.2 fL (80.0-100.0); Mean Platelet Volume 7.5; Platelet Count 301 k/uL (150-450); RBC 3.96 m/uL (4.30-5.90); RDW 12.5 % (11.5-15.5); WBC 8.6 k/uL (3.8-10.6)
[2019-05-19 16:12] VITALS: RESP 16
[2019-05-19 16:36] LABS: Glucose,Whole Blood 144 mg/dL (75-99)
[2019-05-19] MEDS: ACETAMINOPHEN TAB 325 MG TAB PO PRN (18:19)
[2019-05-19 21:02] LABS: Glucose,Whole Blood 94 mg/dL (75-99)
[2019-05-19] MEDS: INSULIN DETEMIR (LEVEMIR) 100 UNIT/ML SYR SQ SCH (21:57)
[2019-05-20 00:05] LABS: Glucose,Whole Blood 133 mg/dL (75-99)
[2019-05-20] MEDS: SODIUM CHLORIDE 0.9% 1,000 ML IV SCH ×2 (02:25→17:19)
[2019-05-20] MEDS ORDERED: DICYCLOMINE 20 MG TAB PO PRN (07:05)
--- NOTE | 2019-05-20 07:12 | ECHOF ---
Referral Reason:sob MEASUREMENTS -------- HEIGHT: 172.7 cm WEIGHT: 72.6 kg BP: 136/95 RVIDd: 2.9 cm (< 3.3) IVSd: 1.5 cm (0.6 - 1.1) LVIDd: 4.2 cm (3.9 - 5.3) LVPWd: 1.4 cm (0.6 - 1.1) IVSs: 1.8 cm LVIDs: 3.0 cm LVPWs: 1.9 cm LA Diam: 3.1 cm (2.7 - 3.8) LAESV Index (A-L): 23.91 ml/m Ao Diam: 3.5 cm (2.0 - 3.7) AV Cusp: 2.2 cm (1.5 - 2.6) MV EXCURSION: 15.510 mm (> 18.000) MV EF SLOPE: 72 mm/s (70 - 150) EPSS: 0.9 cm MV E John: 0.86 m/s MV DecT: 249 ms MV A John: 1.12 m/s MV E/A Ratio: 0.77 RAP: 5.00 mmHg RVSP: 28.48 mmHg FINDINGS -------- Sinus rhythm. This was a technically adequate study. The left ventricular size is normal. There is moderate concentric left ventricular hypertrophy. O verall left ventricular systolic function is normal with, an EF between 55 - 60 %. The diastolic fi lling pattern is normal for the age of the patient 9.39. The right ventricle is normal in size. Normal LA size by volume 22+/-6 ml/m2. The right atrial size is normal. Interatrial and interventricular septum intact. The aortic valve is trileaflet, and appears structurally normal. No aortic stenosis or regurgitation. The mitral valve is normal. There is trace mitral regurgitation. Mild tricuspid regurgitation present. Right ventricular systolic pressure is normal at < 35 mmHg. The right ventricular systolic pressure, as measured by Doppler, is 28.48mmHg. Trace/mild (physiologic) pulmonic regurgitation. The aortic root size is normal. Normal inferior vena cava with normal inspiratory collapse consistent with estimated right atrial pre ssure of 5 mmHg. There is no pericardial effusion. CONCLUSIONS -------- 1. Sinus rhythm. 2. This was a technically adequate study. 3. The left ventricular size is normal. 4. There is moderate concentric left ventricular hypertrophy. 5. Overall left ventricular systolic function is normal with, an EF between 55 - 60 %. 6. The diastolic filling pattern is normal for the age of the patient 9.39 7. Normal LA size by volume 22+/-6 ml/m2. 8. The aortic valve is trileaflet, and appears structurally normal. No aortic stenosis or regurgitati on. 9. There is trace mitral regurgitation. 10. Mild tricuspid regurgitation present. 11. Right ventricular systolic pressure is normal at < 35 mmHg. 12. Trace/mild (physiologic) pulmonic regurgitation. 13. There is no pericardial effusion. TRANSPORTATION AIDE: Adamaris Rebollar RDCS
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
[2019-05-20 07:35] LABS: Glucose,Whole Blood 137 mg/dL (75-99)
[2019-05-20] MEDS: INSULIN ASPART (NovoLOG) 100 UNIT/ML VIAL SQ SCH ×3 (07:45→17:19)
[2019-05-20] MEDS: THIAMINE 100 MG TAB PO SCH ×2 (07:45→17:20)
[2019-05-20] MEDS: metFORMIN 500 MG TAB PO SCH (07:45)
[2019-05-20] MEDS: cloNIDine HCL 0.1 MG TAB PO SCH (09:01)
[2019-05-20] MEDS: PANTOPRAZOLE 40 MG TABLET PO SCH ×2 (09:01→17:20)
[2019-05-20] MEDS: LISINOPRIL 10 MG TAB PO SCH (09:01)
[2019-05-20] MEDS: ACETAMINOPHEN TAB 325 MG TAB PO PRN (09:03)
[2019-05-20] MEDS: 1: MVI, ADULT NO.4 WITH VIT K 10 ML, THIAMINE 100 MG, FOLIC ACID 1 MG in SODIUM CHLORIDE IV SCH ×4 (10:46)
[2019-05-20 12:10] LABS: Glucose,Whole Blood 108 mg/dL (75-99)
[2019-05-20 15:30] VITALS: BP 185/105; PULSE 63; TEMP 98.9
[2019-05-20] MEDS ORDERED: IV FLUID CONTINUATION 200 ML IV ONE (16:03)
[2019-05-20] MEDS ORDERED: LIDOCAINE 1% INJ 10MG/ML (20 ML MDV) ONE (16:03)
[2019-05-20] MEDS ORDERED: PROPOFOL 10 MG/ML 20 ML VIAL IV ONE (16:03)
--- NOTE | 2019-05-20 16:36 | P.PCN ---
Date of Procedure: 05/20/19 Description of Procedure: BRIEF HISTORY: 53-year-old male with a medical history significant for diabetes mellitus and hypertension as well as alcoholism presented to the hospital due to complaints of a loss of appetite and chills, as well as nausea and vomiting. The patient reports a history of alcohol abuse and has been trying to cut down on his intake. He reports tremulousness with this as well as frequent episodes of nausea and vomiting. He states that the abdominal pain has been present for 3-4 weeks he is had intermittent episodes of nausea and vomiting and reports episodes of coffee-ground emesis and some blood streaking in his emesis. He also reports abdominal bloating after eating. No prior history of GERD. No prior EGD or colonoscopy. PROCEDURE PERFORMED: Esophagogastroduodenoscopy with biopsy. PREOPERATIVE DIAGNOSIS: Coffee-ground emesis, hematemesis, nausea vomiting, abdominal pain. ESTIMATED BLOOD LOSS: Minimal. IV sedation per anesthesia. PROCEDURE: After informed consent was obtained, the patient was brought into the endoscopy unit. IV sedation was administered by Anesthesia under continuous monitoring. Initially the Olympus GIF-190 video endoscope was inserted into the mouth. Esophagus intubated without any difficulty. It was gradually advanced into the stomach and duodenum and carefully examined. The bulb and the second part of the duodenum appeared normal, with biopsies taken. The scope at this time was withdrawn to the stomach, adequately insufflated with air, and upon careful examination, mucosa of the antrum, body, cardia and the fundus appeared normal, except for some mild punctate erythema in the antrum and body suggestive of mild gastritis with biopsies taken. The scope was then withdrawn into the esophagus. The GE junction was located at 39 cm from the incisors. The esophagus appeared grossly normal except for a small well-healing distal esophageal erosion likely representing a healing Iraida-Dick tear. Otherwise the esophagus appeared normal. The patient tolerated the procedure well. IMPRESSION: 1. Mild gastritis antrum body, biopsied. 2. Nonbleeding, well-healing distal esophageal erosion (likely from Iraida- Dick tear on presentation). 3. Duodenal biopsies.. RECOMMENDATIONS: The findings of this examination were discussed with the patient. Okay to resume consistent carbohydrate diet. Continue Protonix 40 mg twice a day. Await pathology from biopsies. We'll gastroenterology standpoint patient is stable for discharge when otherwise medically stable, GI service will stand by, please call us back with any questions or concerns.
== END 2019-05-20 18:11 | disposition home or self-care (01) | DRG 897 ==
LOC: EC 08:34 → 6NMEDSUR 14:32
PROVIDERS: ADMIT Internal Medicine; ATTEND Internal Medicine
PROC: 0DB98ZX Excision of Duodenum, Via Natural or Artificial Opening Endoscopic, Diagnostic (ICD-10-PCS; principal; 2019-05-20 14:00)
DX: F10.239 Alcohol dependence with withdrawal, unspecified (principal); E10.65 Type 1 diabetes mellitus with hyperglycemia; F10.229 Alcohol dependence with intoxication, unspecified; Y90.4 Blood alcohol level of 80-99 mg/100 ml; K29.70 Gastritis, unspecified, without bleeding; E87.6 Hypokalemia; E83.42 Hypomagnesemia; I10 Essential (primary) hypertension; R94.31 Abnormal electrocardiogram [ECG] [EKG]; F17.210 Nicotine dependence, cigarettes, uncomplicated; Z71.6 Tobacco abuse counseling; Z79.4 Long term (current) use of insulin; Z79.899 Other long term (current) drug therapy; Z87.19 Personal history of other diseases of the digestive system; F41.9 Anxiety disorder, unspecified
CPT/HCPCS: 36415; 36600; 43239; 74018; 80048; 80053; 80061; 80320; 81001; 81003; 82009; 82150; 82805; 83690; 83735; 84484; 85025; 85027; 93005; 93306; 96361; 96365; 96366; 96372; 96375; 96376; 99285

== ENCOUNTER 2019-09-21 23:31 | Emergency (ER) | payer OTHER ==
[2019-09-22 00:15] VITALS: RESP 16
[2019-09-22] MEDS ORDERED: SODIUM CHLORIDE 0.9% 500 ML 500 ML IV STA (00:19)
[2019-09-22 00:41] LABS: African American GFR (CKD) >90 (>60 ml/min/1.73 sqM); Anion Gap 13 mmol/L; Blood Urea Nitrogen 10 mg/dL (9-20); Calcium 9.2 mg/dL (8.4-10.2); Carbon Dioxide 23 mmol/L (22-30); Chloride 99 mmol/L (98-107); Glucose 287 mg/dL (74-99); Non-African American GFR(CKD) >90 (>60 ml/min/1.73 sqM); Potassium 3.9 mmol/L (3.5-5.1); Sodium 135 mmol/L (137-145)
[2019-09-22 00:57] LABS: Basophils % (A) 0 %; Eosinophils # (A) 0.1 k/uL (0-0.7); Eosinophils % (A) 1 %; HCT 37.1 % (39.0-53.0); HGB 12.6 gm/dL (13.0-17.5); Lymphocytes # (A) 2.1 k/uL (1.0-4.8); Lymphocytes % (A) 23 %; MCH 29.6 pg (25.0-35.0); MCHC 33.9 g/dL (31.0-37.0); MCV 87.4 fL (80.0-100.0); Mean Platelet Volume 7.1; Monocytes # (A) 0.5 k/uL (0-1.0); Monocytes % (A) 5 %; Neutrophils # (A) 6.3 k/uL (1.3-7.7); Neutrophils % (A) 67 %; Platelet Count 354 k/uL (150-450); RBC 4.25 m/uL (4.30-5.90); RDW 12.7 % (11.5-15.5); WBC 9.4 k/uL (3.8-10.6)
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
--- NOTE | 2019-09-22 01:20 | XR ---
EXAMINATION TYPE: XR chest 2V DATE OF EXAM: 09/22/2019 COMPARISON: NONE HISTORY: Cough TECHNIQUE: FINDINGS: There is no heart failure nor confluent pneumonic infiltrate. Costophrenic angles are clear . Bony thorax is intact. Heart and mediastinum are normal. There are chest leads. Bony thorax is inta ct. IMPRESSION: Normal chest
[2019-09-22] MEDS ORDERED: AZITHROMYCIN 500 MG TAB PO STA (01:40)
[2019-09-22 02:09] VITALS: BP 137/90; PULSE 101
[2019-09-22] MEDS ORDERED: ACETAMINOPHEN TAB 325 MG TAB PO STA (02:18)
[2019-09-22 02:24] VITALS: TEMP 100.1
== END 2019-09-22 02:39 | disposition home or self-care (01) ==
LOC: EC 23:31
DX: J40 Bronchitis, not specified as acute or chronic (principal); Z20.828 Contact with and (suspected) exposure to other viral communicable diseases; E11.65 Type 2 diabetes mellitus with hyperglycemia; I10 Essential (primary) hypertension; F17.200 Nicotine dependence, unspecified, uncomplicated; Z79.4 Long term (current) use of insulin; Z79.899 Other long term (current) drug therapy
CPT/HCPCS: 36415; 71046; 80048; 82009; 85025; 87635; 99283

== ENCOUNTER 2019-10-06 21:08 | Observation (INO) | payer OTHER ==
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
--- NOTE | 2019-10-06 22:15 | XR ---
EXAMINATION TYPE: XR chest 2V DATE OF EXAM: 10/06/2019 COMPARISON: 09/22/2019 HISTORY: Chest pain TECHNIQUE: FINDINGS: Heart is normal. Lungs are clear of consolidation. There is mild subsegmental atelectasis l eft lung base. There is no pleural effusion. There are no hilar masses. There are chest leads. IMPRESSION: Mild subsegmental atelectasis left lung base. Normal heart. No change.
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
[2019-10-06] MEDS ORDERED: CLINDAMYCIN 600 MG in DEXTROSE 5% IN WATER 50 ML IVPB STA ×2 (22:25)
[2019-10-06 22:50] LABS: ALT 15 U/L (4-49); AST 22 U/L (17-59); African American GFR (CKD) >90 (>60 ml/min/1.73 sqM); Albumin 4.6 g/dL (3.5-5.0); Alkaline Phosphatase 98 U/L (38-126); Anion Gap 18 mmol/L; Blood Urea Nitrogen 10 mg/dL (9-20); Calcium 9.5 mg/dL (8.4-10.2); Carbon Dioxide 22 mmol/L (22-30); Chloride 98 mmol/L (98-107); Glucose 202 mg/dL (74-99); Magnesium 1.4 mg/dL (1.6-2.3); Non-African American GFR(CKD) >90 (>60 ml/min/1.73 sqM); Potassium 3.6 mmol/L (3.5-5.1); Sodium 138 mmol/L (137-145); Total Bilirubin 0.3 mg/dL (0.2-1.3); Total Protein 7.7 g/dL (6.3-8.2)
[2019-10-06 23:04] LABS: Appearance,Urine Clear (Clear); Bilirubin,Urine Negative (Negative); Blood,Urine Negative (Negative); Color,Urine Yellow; Glucose,Urine (UA) 3+ (Negative); Ketones,Urine 1+ (Negative); Leukocyte Esterase,Urine Negative (Negative); Nitrite,Urine Negative (Negative); Protein,Urine Trace (Negative); Specific Gravity,Urine 1.011 (1.001-1.035)
[2019-10-06 23:05] LABS: Basophils % (A) 1 %; Eosinophils # (A) 0.1 k/uL (0-0.7); Eosinophils % (A) 1 %; HGB 13.2 gm/dL (13.0-17.5); Lymphocytes # (A) 2.7 k/uL (1.0-4.8); Lymphocytes % (A) 37 %; MCH 29.5 pg (25.0-35.0); MCHC 32.9 g/dL (31.0-37.0); MCV 89.6 fL (80.0-100.0); Mean Platelet Volume 6.8; Monocytes # (A) 0.3 k/uL (0-1.0); Monocytes % (A) 5 %; Neutrophils # (A) 3.9 k/uL (1.3-7.7); Neutrophils % (A) 54 %; Platelet Count 424 k/uL (150-450); RBC 4.46 m/uL (4.30-5.90); RDW 13.7 % (11.5-15.5); WBC 7.3 k/uL (3.8-10.6)
[2019-10-06] MEDS ORDERED: INSULIN REGULAR 100 UNIT/ML VIAL SQ ONE (23:13)
[2019-10-06] MEDS ORDERED: LORazepam 2 MG/ML INJ IV PRN ×2 (23:13)
[2019-10-06] MEDS ORDERED: THIAMINE 100 MG/ML 2 ML VIAL IM STA (23:13)
[2019-10-06 23:14] LABS: INR 0.9 (<1.2); Partial Thromboplastin Time 27.1 sec (22.0-30.0); Prothrombin Time 9.9 sec (9.0-12.0)
[2019-10-06] MEDS ORDERED: NALOXONE 0.4 MG/ML 1 ML VIAL IV PRN (23:21)
[2019-10-06] MEDS: SODIUM CHLORIDE 0.9% 1,000 ML IV SCH (23:59)
[2019-10-07] MEDS: THIAMINE 100 MG TAB PO SCH ×3 (00:02→17:32)
[2019-10-07] MEDS: FAMOTIDINE 20 MG/2 ML VIAL IV SCH ×2 (09:32→20:38)
[2019-10-07] MEDS: LORazepam 2 MG/ML INJ IV PRN ×4 (09:33→20:38)
[2019-10-07] MEDS: SODIUM CHLORIDE 0.9% 1,000 ML IV SCH ×2 (09:33→17:30)
[2019-10-07] MEDS: HEPARIN SODIUM,PORCINE 5,000 UNIT/ML 1 ML VIAL SQ SCH ×2 (09:33→20:38)
[2019-10-07] MEDS ORDERED: DILTIAZEM CD 120 MG CAP.ER.24H PO SCH (16:30)
[2019-10-07] MEDS ORDERED: amLODIPine 5 MG TAB PO SCH (16:30)
[2019-10-07 17:01] LABS: Glucose,Whole Blood 376 mg/dL (75-99)
[2019-10-07] MEDS: INSULIN ASPART (NovoLOG) 100 UNIT/ML VIAL SQ SCH ×2 (17:29→20:38)
[2019-10-07 19:46] VITALS: BP 148/94; PULSE 96; RESP 14; TEMP 98.3
[2019-10-07 20:02] LABS: Glucose,Whole Blood 278 mg/dL (75-99)
[2019-10-07] MEDS ORDERED: INSULIN DETEMIR (LEVEMIR) 100 UNIT/ML SYR SQ SCH (21:00)
[2019-10-07] MEDS ORDERED: guaiFENesin-DM 100-10MG/5ML 10 ML CUP PO PRN (21:22)
[2019-10-07] MEDS ORDERED: IPRATROPIUM-ALBUTEROL 3 ML NEB INHALATION PRN (21:22)
[2019-10-07] MEDS ORDERED: MORPHINE SULFATE 2 MG/ML SYRINGE IVP PRN (21:23)
[2019-10-07] MEDS ORDERED: HYDROcodone/APAP 5-325MG 1 EACH TAB PO PRN (21:23)
[2019-10-07] MEDS ORDERED: Potassium Replacement Protocol 1 EACH MISC MISCELLANE PRN (21:28)
[2019-10-07] MEDS ORDERED: Magnesium Replacement Protocol 1 EACH MISC MISCELLANE PRN (21:28)
[2019-10-07] MEDS ORDERED: methylPREDNISolone SOD SUCCI 40 MG/ML 1 ML VIAL IV SCH (21:30)
[2019-10-08] MEDS ORDERED: ASPIRIN 81 MG PO SCH (09:00)
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
== END 2019-10-07 19:32 | disposition left against medical advice (07) ==
LOC: EC 21:08 → INTOOBSV 23:04 → 4SSUR 23:04 → UNDODISIN 10-07 19:32
PROVIDERS: ADMIT Internal Medicine; ATTEND Internal Medicine
DX: H70.93 Unspecified mastoiditis, bilateral (principal); J20.9 Acute bronchitis, unspecified; J32.0 Chronic maxillary sinusitis; J32.1 Chronic frontal sinusitis; J32.2 Chronic ethmoidal sinusitis; F10.229 Alcohol dependence with intoxication, unspecified; I10 Essential (primary) hypertension; F41.9 Anxiety disorder, unspecified; F17.210 Nicotine dependence, cigarettes, uncomplicated; E11.9 Type 2 diabetes mellitus without complications; Z03.818 Encounter for observation for suspected exposure to other biological agents ruled out; Z53.29 Procedure and treatment not carried out because of patient's decision for other reasons; Z79.82 Long term (current) use of aspirin; Z79.84 Long term (current) use of oral hypoglycemic drugs; Z79.899 Other long term (current) drug therapy; Z98.890 Other specified postprocedural states; Z83.3 Family history of diabetes mellitus; Z82.49 Family history of ischemic heart disease and other diseases of the circulatory system
CPT/HCPCS: 96376 ×2; 96366 ×2; 96372 ×3; 96365; 96375; 99285; 36415; 93005; 80053; 83735; 84484 ×2; 85025; 85610; 85730; 81003; 87040; 87635; 71046; 70486; G0378 ×2; J2060; J1644; J3411; J0696

== ENCOUNTER 2020-08-17 01:47 | Inpatient (IN) | payer OTHER ==
[2020-08-17] MEDS ORDERED: SODIUM CHLORIDE 0.9% 1,000 ML IV STA (02:07)
[2020-08-17] MEDS ORDERED: SODIUM CHLORIDE 0.9% 500 ML 500 ML IV ONE (02:07)
[2020-08-17] MEDS ORDERED: SODIUM CHLORIDE 0.9% 1,000 ML IV ONE (02:07)
[2020-08-17 02:09] LABS: Glucose,Whole Blood 308 mg/dL (75-99)
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
[2020-08-17 03:06] LABS: Basophils # (A) 0.1 k/uL (0-0.2); Basophils % (A) 1 %; Eosinophils # (A) 0.3 k/uL (0-0.7); Eosinophils % (A) 5 %; HCT 40.3 % (39.0-53.0); HGB 13.1 gm/dL (13.0-17.5); Lymphocytes # (A) 3.1 k/uL (1.0-4.8); Lymphocytes % (A) 55 %; MCH 29.2 pg (25.0-35.0); MCHC 32.6 g/dL (31.0-37.0); MCV 89.8 fL (80.0-100.0); Monocytes # (A) 0.2 k/uL (0-1.0); Monocytes % (A) 4 %; Neutrophils # (A) 1.9 k/uL (1.3-7.7); Neutrophils % (A) 34 %; Platelet Count 283 k/uL (150-450); RBC 4.49 m/uL (4.30-5.90); RDW 12.7 % (11.5-15.5); WBC 5.6 k/uL (3.8-10.6)
[2020-08-17 03:19] LABS: Appearance,Urine Clear (Clear); Bilirubin,Urine Negative (Negative); Blood,Urine Negative (Negative); Color,Urine Light Yellow; Glucose,Urine (UA) 4+ (Negative); Ketones,Urine Negative (Negative); Leukocyte Esterase,Urine Negative (Negative); Nitrite,Urine Negative (Negative); PH, Urine 6.5 (5.0-8.0); Protein,Urine Trace (Negative); Specific Gravity,Urine 1.025 (1.001-1.035); Urobilinogen,Urine <2.0 mg/dL (<2.0)
[2020-08-17 03:20] LABS: Partial Thromboplastin Time 23.6 sec (22.0-30.0); Prothrombin Time 10.3 sec (9.0-12.0)
[2020-08-17 03:27] LABS: ALT 23 U/L (4-49); AST 37 U/L (17-59); Acetaminophen <10.0 ug/mL; African American GFR (CKD) >90 (>60 ml/min/1.73 sqM); Albumin 4.2 g/dL (3.5-5.0); Alkaline Phosphatase 92 U/L (38-126); Anion Gap 14 mmol/L; Blood Urea Nitrogen 9 mg/dL (9-20); Calcium 8.8 mg/dL (8.4-10.2); Carbon Dioxide 24 mmol/L (22-30); Chloride 104 mmol/L (98-107); Creatine Kinase 97 U/L (55-170); Glucose 306 mg/dL (74-99); Magnesium 1.6 mg/dL (1.6-2.3); Non-African American GFR(CKD) >90 (>60 ml/min/1.73 sqM); Phosphorus 3.8 mg/dL (2.5-4.5); Potassium 3.8 mmol/L (3.5-5.1); Salicylate <1.0 mg/dL; Sodium 142 mmol/L (137-145); Total Bilirubin 0.3 mg/dL (0.2-1.3); Total Protein 6.7 g/dL (6.3-8.2)
[2020-08-17 03:33] LABS: Urn Cannabinoid Scrn Not Detected (NotDetected)
[2020-08-17 03:34] LABS: Amphetamine Screen,Urine Not Detected (NotDetected); Barbiturate Screen,Urine Not Detected (NotDetected); Benzodiazepines Screen,Urine Detected (NotDetected); Cocaine Screen,Urine Detected (NotDetected); Methadone Screen, Urine Not Detected (NotDetected); Opiate Screen,Urine Not Detected (NotDetected); Oxycodone Screen, Urine Not Detected (NotDetected); Phencyclidine Screen,Urine Not Detected (NotDetected); Tricyclic Antidepressant,Urine Not Detected (NotDetected)
[2020-08-17 03:54] LABS: Alcohol 337 mg/dL
[2020-08-17] MEDS ORDERED: ONDANSETRON 4 MG/2 ML VIAL IVP PRN (03:56)
[2020-08-17] MEDS ORDERED: MORPHINE SULFATE 4 MG/ML SYRINGE IV PRN (03:56)
[2020-08-17] MEDS ORDERED: NALOXONE 0.4 MG/ML 1 ML VIAL IV PRN (03:56)
[2020-08-17] MEDS ORDERED: LORazepam 2 MG/ML INJ IV PRN (03:56)
--- NOTE | 2020-08-17 03:58 | CT ---
EXAM: CT Head Without Intravenous Contrast CLINICAL HISTORY: Fall TECHNIQUE: Axial computed tomography images of the head/brain without intravenous contrast. CTDI is 28.385 mGy and DLP is 662.95 mGy-cm. This CT exam was performed using one or more of the following dose reduction techniques: automated exposure control, adjustment of the mA and/or kV according to patient size, and/or use of iterative reconstruction technique. COMPARISON: No relevant prior studies available. FINDINGS: Brain: No acute findings. No acute intracranial hemorrhage, edema or abnormal mass-effect. Ventricles: Unremarkable. No ventriculomegaly. Bones/joints: Unremarkable. No acute fracture. Old fracture deformities of the right zygoma and the right nasomaxillary junction. Soft tissues: Unremarkable. Sinuses: Unremarkable as visualized. No acute sinusitis. Mastoid air cells: Unremarkable as visualized. No mastoid effusion. IMPRESSION: No evidence of acute fracture or acute intracranial injury. EXAM: CT Cervical Spine Without Intravenous Contrast CLINICAL HISTORY: Fall TECHNIQUE: Axial computed tomography images of the cervical spine without intravenous contrast. CTDI is 28.385 mGy and DLP is 662.95 mGy-cm. This CT exam was performed using one or more of the following dose reduction techniques: automated exposure control, adjustment of the mA and/or kV according to patient size, and/or use of iterative reconstruction technique. COMPARISON: No relevant prior studies available. FINDINGS: Vertebrae: Unremarkable. No acute fracture. Discs/spinal canal/neural foramina: No acute findings. No spinal canal stenosis. Soft tissues: Unremarkable. Dental: Numerous periodontal lucencies. Other findings: Large anterior spurs. IMPRESSION: No acute findings in the cervical spine.
[2020-08-17] MEDS ORDERED: THIAMINE 100 MG/ML 2 ML VIAL IM ONE (04:00)
[2020-08-17 04:22] LABS: Glucose,Whole Blood 214 mg/dL (75-99)
[2020-08-17] MEDS: 0.9% NACL WITH KCL 20 MEQ/L 1,000 ML IV SCH ×3 (04:54→22:33)
[2020-08-17 07:03] LABS: Glucose,Whole Blood 221 mg/dL (75-99)
[2020-08-17] MEDS: PANTOPRAZOLE 40 MG/10 ML VIAL IV SCH (09:02)
[2020-08-17] MEDS ORDERED: FUROSEMIDE 10 MG/ML 4 ML VIAL IV STA (11:22)
[2020-08-17] MEDS ORDERED: ENALAPRILAT 1.25 MG/ML 1 ML VIAL IVP STA (11:23)
[2020-08-17] MEDS ORDERED: DILTIAZEM CD 120 MG CAP.ER.24H PO STA (11:24)
[2020-08-17 11:31] LABS: Glucose,Whole Blood 208 mg/dL (75-99)
[2020-08-17] MEDS: LORazepam 2 MG/ML INJ IV PRN ×3 (11:41→22:13)
[2020-08-17] MEDS: LOSARTAN 50 MG TAB PO SCH (11:43)
[2020-08-17] MEDS: cloNIDine HCL 0.1 MG TAB PO SCH ×3 (11:43→22:14)
[2020-08-17] MEDS: METOPROLOL TARTRATE 50 MG TAB PO SCH ×2 (11:43→20:51)
[2020-08-17 18:12] LABS: Glucose,Whole Blood 326 mg/dL (75-99)
--- NOTE | 2020-08-17 18:57 | HP ---
HISTORY AND PHYSICAL CHIEF COMPLAINT: Acute alcohol intoxication and multiple substance abuse. HISTORY OF PRESENT ILLNESS: This is another admission for this 54-year-old -[place] male who presented intoxicated as well as having other substances in his drug screen. He has other health- related problems, including history of pancreatitis, uncontrolled hypertension with congestive heart failure. REVIEW OF SYSTEMS: Review of systems is unobtainable reliably. He denies chest pain. It is not known if he is taking medications which he is supposed to be on, including warfarin, metformin, Toprol, NovoLog 8 units 3 times a day, vitamin D, Symbicort, ProAir, diltiazem, amlodipine and Catapres. PHYSICAL EXAMINATION: His blood pressure is elevated at 178/112. Pulse is 104, respirations are 30. In general he appears to be intoxicated. Skin is slightly moist. Head, ears, eyes, nose and mouth are normal. Chest is clear. Cardiac exam demonstrates tachycardia. The abdomen is soft and there are no masses or visceromegaly. Bowel sounds are heard. Extremities are normal. Neurologically he seems to be intact. He is admitted to the hospital with the diagnoses: 1. Acute alcohol intoxication. 2. Chronic alcoholism. 3. Uncontrolled hypertension. 4. Insulin-dependent diabetes mellitus. PLAN: 1. Bedrest. 2. IV fluids. 3. Control blood sugars. 4. Control blood pressure. 5. CIWA protocol. MMODL / IJN: [id number] /
[2020-08-17 20:05] LABS: Glucose,Whole Blood 334 mg/dL (75-99)
[2020-08-17] MEDS: INSULIN ASPART (NovoLOG) 100 UNIT/ML VIAL SQ SCH (20:51)
[2020-08-17] MEDS: THIAMINE 100 MG TAB PO SCH (20:51)
[2020-08-18 00:36] LABS: Hemoglobin A1C 10.7 % (4.0-6.0)
[2020-08-18] MEDS: LORazepam 2 MG/ML INJ IV PRN ×7 (05:47→20:17)
[2020-08-18] MEDS: 0.9% NACL WITH KCL 20 MEQ/L 1,000 ML IV SCH ×3 (06:08→20:15)
[2020-08-18 06:24] LABS: ALT 21 U/L (4-49); AST 32 U/L (17-59); African American GFR (CKD) >90 (>60 ml/min/1.73 sqM); Albumin/Globulin Ratio 1.3; Alkaline Phosphatase 83 U/L (38-126); Anion Gap 5 mmol/L; Blood Urea Nitrogen 19 mg/dL (9-20); Calcium 8.7 mg/dL (8.4-10.2); Carbon Dioxide 26 mmol/L (22-30); Chloride 101 mmol/L (98-107); Globulin 2.4 g/dL; Glucose 284 mg/dL (74-99); Magnesium 1.2 mg/dL (1.6-2.3); Non-African American GFR(CKD) >90 (>60 ml/min/1.73 sqM); Potassium 4.1 mmol/L (3.5-5.1); Sodium 132 mmol/L (137-145); Total Protein 5.4 g/dL (6.3-8.2)
[2020-08-18] MEDS: PANTOPRAZOLE 40 MG/10 ML VIAL IV SCH (07:24)
[2020-08-18] MEDS: LOSARTAN 50 MG TAB PO SCH (07:25)
[2020-08-18] MEDS: METOPROLOL TARTRATE 50 MG TAB PO SCH ×2 (07:25→19:24)
[2020-08-18] MEDS: cloNIDine HCL 0.1 MG TAB PO SCH ×3 (07:25→19:28)
[2020-08-18] MEDS: THIAMINE 100 MG TAB PO SCH ×2 (07:26→17:42)
[2020-08-18 07:30] LABS: Glucose,Whole Blood 339 mg/dL (75-99)
[2020-08-18] MEDS: INSULIN ASPART (NovoLOG) 100 UNIT/ML VIAL SQ SCH ×5 (08:38→20:56)
[2020-08-18 09:07] LABS: Basophils # (A) 0.03 X 10*3/uL (0.00-0.10); Basophils % (A) 0.4 %; Eosinophils # (A) 0.43 X 10*3/uL (0.04-0.35); Eosinophils % (A) 5.2 %; HCT 33.8 % (39.6-50.0); HGB 11.3 g/dL (13.0-17.0); Lymphocytes # (A) 2.57 X 10*3/uL (0.90-5.00); Lymphocytes % (A) 30.8 %; MCH 30.2 pg (27.0-32.0); MCHC 33.4 g/dL (32.0-37.0); MCV 90.4 fL (80.0-97.0); Mean Platelet Volume 10.3 fL (9.5-12.2); Monocytes # (A) 0.43 X 10*3/uL (0.20-1.00); Monocytes % (A) 5.2 %; Neutrophils # (A) 4.86 X 10*3/uL (1.80-7.70); Neutrophils % (A) 58.2 %; Platelet Count 211 X 10*3/uL (140-440); RBC 3.74 X 10*6/uL (4.40-5.60); WBC 8.34 X 10*3/uL (4.50-10.00)
[2020-08-18 11:42] LABS: Glucose,Whole Blood 298 mg/dL (75-99)
[2020-08-18 14:10] VITALS: BMI 22.0
[2020-08-18 16:39] LABS: Glucose,Whole Blood 293 mg/dL (75-99)
--- NOTE | 2020-08-18 18:42 | PN ---
PROGRESS NOTE CHIEF COMPLAINT: Acute alcohol intoxication, hypertension and uncontrolled diabetes. HISTORY OF PRESENT ILLNESS: This gentleman seems to be stable and not in DTs at this time. His blood pressure is still quite high as is his blood sugar. He was started on basal bolus program. PHYSICAL EXAMINATION: Chest is clear. Cardiac exam is normal. Abdomen is soft, nontender. IMPRESSION: 1. Acute alcohol intoxication. 2. Chronic alcoholism. 3. Impending DTs. 4. Uncontrolled hypertension. 5. Uncontrolled diabetes. PLAN: Increase management for both blood pressure and diabetes and continue on CIWA protocol. MMODL / IJN: [id number] /
[2020-08-18 20:31] LABS: Glucose,Whole Blood 213 mg/dL (75-99)
[2020-08-18] MEDS ORDERED: amLODIPine 10 MG TAB PO SCH (21:00)
[2020-08-19] MEDS: LORazepam 2 MG/ML INJ IV PRN ×2 (01:55→08:45)
[2020-08-19] MEDS: 0.9% NACL WITH KCL 20 MEQ/L 1,000 ML IV SCH (05:24)
[2020-08-19] MEDS ORDERED: INSULIN DETEMIR (LEVEMIR) 100 UNIT/ML SYR SQ SCH (07:00)
[2020-08-19 08:35] VITALS: BP 123/77; PULSE 78; RESP 14; TEMP 98.5
[2020-08-19 08:35] LABS: Glucose,Whole Blood 336 mg/dL (75-99)
[2020-08-19] MEDS: METOPROLOL TARTRATE 50 MG TAB PO SCH (08:37)
[2020-08-19] MEDS: cloNIDine HCL 0.1 MG TAB PO SCH (08:37)
[2020-08-19] MEDS: PANTOPRAZOLE 40 MG/10 ML VIAL IV SCH (08:37)
[2020-08-19] MEDS: THIAMINE 100 MG TAB PO SCH (08:37)
[2020-08-19] MEDS: LOSARTAN 50 MG TAB PO SCH (08:37)
[2020-08-19] MEDS: INSULIN ASPART (NovoLOG) 100 UNIT/ML VIAL SQ SCH ×2 (08:44)
--- NOTE | 2020-08-20 06:57 | DS ---
DISCHARGE SUMMARY DATE OF SERVICE: 08/19/2020 CHIEF COMPLAINT: Acute alcohol intoxication. HISTORY OF PRESENT ILLNESS AND PHYSICAL EXAMINATION: Details of this man's history and physical can be found in the initial workup. LABORATORY STUDIES: While he was in the hospital he had laboratory studies, details of which can be found in the laboratory section of his chart. COURSE IN THE HOSPITAL: After admission he was placed on bedrest, started on IV fluids and placed on CIWA protocol. His blood pressure remained extremely high, as did his blood sugar. Management was started and the blood pressure and sugar were responding. He did not go into florid DTs. He seemed to be improving. Then he suddenly signed himself out AGAINST MEDICAL ADVICE in the afternoon the . FINAL DIAGNOSIS: 1. Acute alcohol intoxication. 2. Chronic alcoholism. 3. Polysubstance abuse. 4. Uncontrolled hypertension. 5. Uncontrolled diabetes, insulin dependent. OPERATIONS: None. CONSULTATION: None. NATASHA / MIKAL: [id number] /
== END 2020-08-19 11:05 | disposition left against medical advice (07) | DRG 638 ==
LOC: EC 01:47 → 6NMEDSUR 03:56 → OBSVTOIN 08-18 09:32
PROVIDERS: ADMIT Family Medicine; ATTEND Family Medicine
DX: E11.65 Type 2 diabetes mellitus with hyperglycemia (principal); F10.239 Alcohol dependence with withdrawal, unspecified; F10.229 Alcohol dependence with intoxication, unspecified; Z79.82 Long term (current) use of aspirin; Z79.4 Long term (current) use of insulin; I50.9 Heart failure, unspecified; I11.0 Hypertensive heart disease with heart failure; F19.10 Other psychoactive substance abuse, uncomplicated; Z20.822 Contact with and (suspected) exposure to COVID-19; Z83.3 Family history of diabetes mellitus; Z82.49 Family history of ischemic heart disease and other diseases of the circulatory system; F17.200 Nicotine dependence, unspecified, uncomplicated
CPT/HCPCS: 36415; 70450; 72125; 80053; 80143; 80179; 80306; 80320; 81003; 82009; 82140; 82550; 83036; 83735; 84100; 84484; 85025; 85610; 85730; 87635; 96360; 99285